=== PATIENT | female | born 1965 | race Caucasian/White ===

== ENCOUNTER → 2024-02-20 14:17 | Outpatient (REF) | payer BC, SELFPAY | LOC: HWWDC 14:17 | PROVIDERS: ATTENDING PHYSICIAN Obstetrics & Gynecology; FAMILY PHYSICIAN Physician Assistant | DX: Z12.31 Encounter for screening mammogram for malignant neoplasm of breast (principal) | CPT/HCPCS: 77063; 77067 ==

== ENCOUNTER → 2025-01-24 11:10 | Outpatient (REF) | payer BC, SELFPAY | LOC: HWRAD 11:10 | PROVIDERS: ATTENDING PHYSICIAN Student in an Organized Health Care Education/Training Program; FAMILY PHYSICIAN Physician Assistant | DX: R06.02 Shortness of breath (principal); R05.3 Chronic cough; M34.9 Systemic sclerosis, unspecified; M33.20 Polymyositis, organ involvement unspecified; J45.909 Unspecified asthma, uncomplicated; I73.00 Raynaud's syndrome without gangrene; H57.89 Other specified disorders of eye and adnexa | CPT/HCPCS: 71250 ==